=== PATIENT | male | born 1955 | race Caucasian/White ===

== ENCOUNTER 2025-02-04 10:57 | Outpatient (CLI) | payer OTHER, SELFPAY | END 2025-02-04 10:58 | disposition home or self-care (01) | LOC: WOUND 11:04 | PROVIDERS: PCP Surgery; Referring Provider Surgery; Visit Provider Nurse Practitioner Family | DX: S91.311A Laceration without foreign body, right foot, initial encounter (principal); W28.XXXA Contact with powered lawn mower, initial encounter; Z94.5 Skin transplant status | CPT/HCPCS: G0463 ==

== ENCOUNTER 2025-02-11 10:39 | Outpatient (CLI) | payer MEDICARE, SELFPAY | END 2025-02-11 10:40 | disposition home or self-care (01) | LOC: WOUND 10:39 | PROVIDERS: PCP Surgery; Visit Provider Nurse Practitioner Family | DX: S81.811D Laceration without foreign body, right lower leg, subsequent encounter (principal); W28.XXXD Contact with powered lawn mower, subsequent encounter; Z94.5 Skin transplant status | CPT/HCPCS: G0463 ==